=== PATIENT | female | born 1950 | race African-American/Black ===

== ENCOUNTER 2019-08-28 16:14 | Inpatient (IN) | payer MEDICARE ==
[~2019-08-28] VITALS: Ht 160 cm; Wt 64.7 kg
[2019-08-28] MEDS ORDERED: FURO40I IM (16:33)
[2019-08-28 17:28] LABS: BASOPHILS % (AUTO) 0.9 % (0.0-2.0); EOSINOPHILS % (AUTO) 1.2 % (1.0-6.0); HEMATOCRIT 48.8 % (36-46); HEMOGLOBIN 15.9 g/dL (12.0-16.0); LYMPHOCYTES # (AUTO) 1.5 K/uL (1.0-4.8); MEAN CORPUSCULAR HGB CONC 32.6 G/dL (31.0-37.0); MEAN CORPUSCULAR VOLUME 80 fL (80-100); MONOCYTES # (AUTO) 0.4 K/uL (0.1-1.0); NEUTROPHILS # (AUTO) 2.7 K/uL (1.8-7.7); NEUTROPHILS % (AUTO) 56.9 % (40.0-70.0); PLATELET COUNT (AUTO) 135 K/uL (150-450); RED BLOOD CELL COUNT(AUTO) 6.11 MIL/uL (4.00-5.20)
[2019-08-28 17:38] LABS: CALCIUM, TOTAL 8.1 mg/dL (8.8-10.5); CREATININE 3.14 mg/dL (0.60-1.30)
[2019-08-28 17:47] LABS: TROPONIN I 0.13 ng/mL (0.00-0.05)
[2019-08-28 17:52] LABS: ALBUMIN 3.2 g/dL (3.4-5.0); BILIRUBIN,TOTAL 3.6 mg/dL (0.1-1.0); THYROID STIMULATING HORMONE 60.85 uIU/mL (0.36-3.74); TOTAL PROTEIN, SERUM 6.4 g/dL (6.4-8.2)
[2019-08-28] MEDS ORDERED: 0.9% SODIUM CHLORIDE 10 ML SYRINGE IVP PRN (18:30)
[2019-08-28] MEDS ORDERED: ONDANSETRON HCL 4 MG/2 ML VIAL IVP PRN ×2 (18:30→23:15)
[2019-08-28] MEDS ORDERED: ACETAMINOPHEN 325 MG TABLET PO PRN ×2 (18:30→23:15)
[2019-08-28 22:30] VITALS: BP 111/66
[2019-08-28] MEDS ORDERED: INFLUENZA VIRUS VACCINE QVS 2019-20 (3YR+)/PF 60 MCG/0.5 ML SYRINGE IM ONE (22:30)
[2019-08-28] MEDS ORDERED: ZOLPIDEM TARTRATE 5 MG TABLET PO PRN (23:15)
[2019-08-28] MEDS ORDERED: HYDROCODONE/ACETAMINOPHEN 5-325 MG TABLET PO PRN (23:15)
[2019-08-28] MEDS ORDERED: IPRATROPIUM BROMIDE 0.5 MG/2.5 ML NEB SOLUTION NEB PRN (23:15)
[2019-08-28] MEDS ORDERED: BISACODYL 10 MG RECTAL RECTAL SUPPOSITORY PR PRN (23:15)
[2019-08-28] MEDS ORDERED: MAGNESIUM HYDROXIDE SUSPENSION 30 ML UDCUP PO PRN (23:15)
[2019-08-28] MEDS ORDERED: MORPHINE SULFATE 2 MG/ML SYRINGE IVP PRN (23:15)
[2019-08-28] MEDS ORDERED: ALBUTEROL SULFATE 2.5 MG/0.5 ML NEB SOLUTION NEB PRN (23:15)
[2019-08-29] VITALS (7 sets, daily range): BP systolic 104–123; BP diastolic 61–94
[2019-08-29 01:07] LABS: APPEARANCE,URINE CLOUDY (CLEAR); GLUCOSE, URINE (UA) NEGATIVE (NEGATIVE); KETONES,URINE TRACE mg/dL (NEGATIVE); LEUKOCYTE ESTERASE ,URINE SMALL (NEGATIVE); NITRATE,URINE POSITIVE (NEGATIVE); OCCULT BLOOD,URINE NEGATIVE (NEGATIVE); PROTEIN,URINE SEE CONFIRM (NEGATIVE)
[2019-08-29 01:10] LABS: BILIRUBIN,URINE PRELIM. POSITIVE (NEGATIVE)
[2019-08-29 01:12] LABS: AMPHET/METH SCREEN,URINE NEGATIVE (NEGATIVE); BARBITURATE SCREEN, URINE NEGATIVE (NEGATIVE); BENZODIAZEPINES SCREEN,URINE NEGATIVE (NEGATIVE); CANNABINOID SCREEN,URINE NEGATIVE (NEGATIVE); COCAINE SCREEN,URINE NEGATIVE (NEGATIVE); METHADONE SCREEN, URINE NEGATIVE (NEGATIVE); OPIATE SCREEN,URINE NEGATIVE (NEGATIVE); PHENCYCLIDINE SCREEN,URINE NEGATIVE (NEGATIVE)
[2019-08-29 01:18] LABS: BACTERIA,URINE Few /HPF (None Seen)
[2019-08-29 01:19] LABS: SQUAMOUS EPITHELIAL CELL,UR Moderate /LPF (None Seen)
[2019-08-29 01:21] LABS: SULFOSALICYLIC ACID,URINE 1+ (Negative)
[2019-08-29 06:08] LABS: BASOPHILS % (AUTO) 0.9 % (0.0-2.0); EOSINOPHILS % (AUTO) 2.2 % (1.0-6.0); HEMATOCRIT 46.3 % (36-46); HEMOGLOBIN 15.1 g/dL (12.0-16.0); LYMPHOCYTES # (AUTO) 1.4 K/uL (1.0-4.8); LYMPHOCYTES % (AUTO) 29.4 % (22.0-44.0); MEAN CORPUSCULAR HEMOGLOBIN 25.9 pg (26.0-34.0); MEAN CORPUSCULAR HGB CONC 32.6 G/dL (31.0-37.0); MEAN CORPUSCULAR VOLUME 80 fL (80-100); MONOCYTES # (AUTO) 0.6 K/uL (0.1-1.0); MONOCYTES % (AUTO) 13.4 % (2.0-9.0); NEUTROPHILS # (AUTO) 2.6 K/uL (1.8-7.7); NEUTROPHILS % (AUTO) 54.1 % (40.0-70.0); PLATELET COUNT (AUTO) 130 K/uL (150-450); RED BLOOD CELL COUNT(AUTO) 5.83 MIL/uL (4.00-5.20); RED CELL DISTRIBUTION WIDTH 17.4 % (11.5-14.5)
[2019-08-29] MEDS: LEVOTHYROXINE SODIUM 50 MCG TABLET PO SCH ×2 (06:30→06:43)
[2019-08-29 06:42] LABS: ALBUMIN 2.8 g/dL (3.4-5.0); BILIRUBIN,TOTAL 3.2 mg/dL (0.1-1.0); CALCIUM, TOTAL 8.2 mg/dL (8.8-10.5); CREATININE 2.95 mg/dL (0.60-1.30); POTASSIUM 3.6 mmol/L (3.5-5.1); TOTAL PROTEIN, SERUM 5.9 g/dL (6.4-8.2)
[2019-08-29] MEDS: HEPARIN SODIUM,PORCINE 5,000 UNITS/ML VIAL SQ SCH ×4 (08:00→23:19)
[2019-08-29] MEDS ORDERED: BUMETANIDE 0.25 MG/ML 4 ML VIAL IVP SCH (09:00)
[2019-08-29] MEDS: SPIRONOLACTONE 25 MG TABLET PO SCH (15:15)
[2019-08-29] MEDS: BUMETANIDE 0.25 MG/ML 4 ML VIAL IVP SCH ×2 (15:49→21:00)
[2019-08-29] MEDS ORDERED: SODIUM CHLORIDE 0.9% 2,000 ML IV ONE (19:08)
[2019-08-30 00:18] VITALS: BP 95/64
[2019-08-30] MEDS: LEVOTHYROXINE SODIUM 50 MCG TABLET PO SCH (05:31)
[2019-08-30 06:11] VITALS: BP 114/71
[2019-08-30 06:47] LABS: BASOPHILS % (AUTO) 0.4 % (0.0-2.0); EOSINOPHILS % (AUTO) 1.9 % (1.0-6.0); HEMATOCRIT 45.2 % (36-46); HEMOGLOBIN 14.7 g/dL (12.0-16.0); LYMPHOCYTES # (AUTO) 1.8 K/uL (1.0-4.8); LYMPHOCYTES % (AUTO) 37.1 % (22.0-44.0); MEAN CORPUSCULAR HEMOGLOBIN 26.1 pg (26.0-34.0); MEAN CORPUSCULAR HGB CONC 32.6 G/dL (31.0-37.0); MEAN CORPUSCULAR VOLUME 80 fL (80-100); MONOCYTES # (AUTO) 0.6 K/uL (0.1-1.0); MONOCYTES % (AUTO) 11.8 % (2.0-9.0); NEUTROPHILS # (AUTO) 2.3 K/uL (1.8-7.7); NEUTROPHILS % (AUTO) 48.8 % (40.0-70.0); PLATELET COUNT (AUTO) 125 K/uL (150-450); RED BLOOD CELL COUNT(AUTO) 5.64 MIL/uL (4.00-5.20); RED CELL DISTRIBUTION WIDTH 17.7 % (11.5-14.5)
[2019-08-30 07:02] VITALS: BP 112/66
[2019-08-30 07:07] LABS: ALBUMIN 3.1 g/dL (3.4-5.0); BILIRUBIN,TOTAL 3.5 mg/dL (0.1-1.0); CALCIUM, TOTAL 8.2 mg/dL (8.8-10.5); CREATININE 2.77 mg/dL (0.60-1.30); POTASSIUM 3.6 mmol/L (3.5-5.1); TOTAL PROTEIN, SERUM 6.3 g/dL (6.4-8.2)
[2019-08-30] MEDS: HEPARIN SODIUM,PORCINE 5,000 UNITS/ML VIAL SQ SCH ×3 (08:00→23:09)
[2019-08-30] MEDS: SPIRONOLACTONE 25 MG TABLET PO SCH ×2 (09:00→11:23)
[2019-08-30] MEDS: BUMETANIDE 0.25 MG/ML 4 ML VIAL IVP SCH ×4 (09:00→20:51)
[2019-08-30] MEDS: METOPROLOL SUCCINATE 25 MG ER TABLET PO SCH ×3 (11:23→21:00)
[2019-08-30 11:53] VITALS: BP 126/74
[2019-08-30 13:44] LABS: CREATININE,URINE RANDOM 76.3 mg/dL (30.0-125.0)
[2019-08-30 15:40] VITALS: BP 114/69
[2019-08-30 19:57] VITALS: BP 116/62
[2019-08-31 04:31] VITALS: BP 115/59
[2019-08-31] MEDS: LEVOTHYROXINE SODIUM 50 MCG TABLET PO SCH (06:07)
[2019-08-31] MEDS: HEPARIN SODIUM,PORCINE 5,000 UNITS/ML VIAL SQ SCH ×3 (08:00→23:51)
[2019-08-31] MEDS: METOPROLOL SUCCINATE 25 MG ER TABLET PO SCH ×2 (09:00→20:33)
[2019-08-31] MEDS: BUMETANIDE 0.25 MG/ML 4 ML VIAL IVP SCH ×3 (09:12→21:16)
[2019-08-31] MEDS: SPIRONOLACTONE 25 MG TABLET PO SCH (09:12)
[2019-08-31 11:05] LABS: HIV 1-2 SCREEN 4TH GEN W/RFLX Non Reactive (Non Reactive)
[2019-08-31 12:01] VITALS: BP 118/62
[2019-08-31] MEDS: ASPIRIN 81 MG CHEWABLE TABLET PO SCH (12:15)
[2019-08-31] MEDS: ATORVASTATIN CALCIUM 10 MG TABLET PO SCH (12:15)
[2019-08-31 15:46] VITALS: BP 114/71
[2019-08-31 20:04] VITALS: BP 145/63
[2019-08-31 23:20] VITALS: BP 139/67
[2019-09-01 05:23] VITALS: BP 117/82
[2019-09-01] MEDS: LEVOTHYROXINE SODIUM 50 MCG TABLET PO SCH (05:50)
[2019-09-01] MEDS: HEPARIN SODIUM,PORCINE 5,000 UNITS/ML VIAL SQ SCH ×3 (08:00→23:29)
[2019-09-01] MEDS: SPIRONOLACTONE 25 MG TABLET PO SCH (08:21)
[2019-09-01] MEDS: BUMETANIDE 0.25 MG/ML 4 ML VIAL IVP SCH ×3 (08:21→21:00)
[2019-09-01] MEDS: ATORVASTATIN CALCIUM 10 MG TABLET PO SCH (08:30)
[2019-09-01] MEDS: ASPIRIN 81 MG CHEWABLE TABLET PO SCH (08:30)
[2019-09-01] MEDS: METOPROLOL SUCCINATE 25 MG ER TABLET PO SCH ×2 (08:31→21:00)
[2019-09-01] MEDS: LEVOTHYROXINE SODIUM 100 MCG VIAL IVP SCH (12:37)
[2019-09-01 12:52] LABS: CALCIUM, TOTAL 8.7 mg/dL (8.8-10.5); CREATININE 1.97 mg/dL (0.60-1.30); POTASSIUM 3.2 mmol/L (3.5-5.1)
[2019-09-01] MEDS ORDERED: POTASSIUM CHLORIDE 20 MEQ ER TABLET PO ONE ×2 (14:45→17:45)
[2019-09-01 20:36] VITALS: BP 134/89
[2019-09-02 06:24] VITALS: BP 93/63
[2019-09-02] MEDS: HEPARIN SODIUM,PORCINE 5,000 UNITS/ML VIAL SQ SCH ×2 (07:54→16:00)
[2019-09-02] MEDS: ASPIRIN 81 MG CHEWABLE TABLET PO SCH (07:54)
[2019-09-02] MEDS: LEVOTHYROXINE SODIUM 100 MCG VIAL IVP SCH (07:54)
[2019-09-02] MEDS: SPIRONOLACTONE 25 MG TABLET PO SCH (07:54)
[2019-09-02] MEDS: METOPROLOL SUCCINATE 25 MG ER TABLET PO SCH ×2 (07:55→21:00)
[2019-09-02] MEDS: ATORVASTATIN CALCIUM 10 MG TABLET PO SCH (07:55)
[2019-09-02] MEDS: BUMETANIDE 0.25 MG/ML 10 ML VIAL IV SCH ×2 (08:32→21:00)
[2019-09-02 10:46] VITALS: BP 111/70
[2019-09-02 13:35] LABS: BASOPHILS % (AUTO) 0.5 % (0.0-2.0); EOSINOPHILS % (AUTO) 2.2 % (1.0-6.0); HEMATOCRIT 49.9 % (36-46); HEMOGLOBIN 16.1 g/dL (12.0-16.0); LYMPHOCYTES # (AUTO) 0.8 K/uL (1.0-4.8); LYMPHOCYTES % (AUTO) 13.6 % (22.0-44.0); MEAN CORPUSCULAR HEMOGLOBIN 25.5 pg (26.0-34.0); MEAN CORPUSCULAR HGB CONC 32.2 G/dL (31.0-37.0); MEAN CORPUSCULAR VOLUME 79 fL (80-100); MONOCYTES % (AUTO) 16.3 % (2.0-9.0); NEUTROPHILS # (AUTO) 4.1 K/uL (1.8-7.7); NEUTROPHILS % (AUTO) 67.4 % (40.0-70.0); PLATELET COUNT (AUTO) 140 K/uL (150-450); RED BLOOD CELL COUNT(AUTO) 6.29 MIL/uL (4.00-5.20); RED CELL DISTRIBUTION WIDTH 17.2 % (11.5-14.5)
[2019-09-02 13:43] LABS: ALBUMIN 2.7 g/dL (3.4-5.0); BILIRUBIN,TOTAL 2.7 mg/dL (0.1-1.0); CALCIUM, TOTAL 8.3 mg/dL (8.8-10.5); CREATININE 1.53 mg/dL (0.60-1.30); POTASSIUM 4.5 mmol/L (3.5-5.1); TOTAL PROTEIN, SERUM 6.2 g/dL (6.4-8.2)
[2019-09-02] MEDS ORDERED: LEVOFLOXACIN 750 MG/D5% WATER 150 ML IV SCH (14:00)
[2019-09-02 14:27] VITALS: BP 122/72
[2019-09-02 19:37] VITALS: BP 101/72
[2019-09-02 23:13] VITALS: BP 122/75
[2019-09-03 05:04] VITALS: BP_SYST 104; BP_SYST 105; BP_DIAS 57; BP_DIAS 62
[2019-09-03] MEDS: LEVOTHYROXINE SODIUM 100 MCG VIAL IVP SCH (05:36)
[2019-09-03 07:31] VITALS: BP 101/65
[2019-09-03] MEDS: HEPARIN SODIUM,PORCINE 5,000 UNITS/ML VIAL SQ SCH ×3 (08:00→15:08)
[2019-09-03] MEDS: ASPIRIN 81 MG CHEWABLE TABLET PO SCH (08:10)
[2019-09-03] MEDS: SPIRONOLACTONE 25 MG TABLET PO SCH (08:10)
[2019-09-03] MEDS: ATORVASTATIN CALCIUM 10 MG TABLET PO SCH (08:11)
[2019-09-03] MEDS: METOPROLOL SUCCINATE 25 MG ER TABLET PO SCH ×2 (08:11→21:00)
[2019-09-03] MEDS ORDERED: AcetaZOLAMIDE 250 MG TABLET PO ONE (09:30)
[2019-09-03 11:08] VITALS: BP 111/69
[2019-09-03 16:15] VITALS: BP 98/63
[2019-09-03 20:02] VITALS: BP 127/69
[2019-09-04 00:16] VITALS: BP 121/65
[2019-09-04 04:38] VITALS: BP 112/52
[2019-09-04] MEDS: LEVOTHYROXINE SODIUM 100 MCG VIAL IVP SCH (06:07)
[2019-09-04 07:00] VITALS: BP 122/60
[2019-09-04] MEDS: HEPARIN SODIUM,PORCINE 5,000 UNITS/ML VIAL SQ SCH ×3 (08:00→15:03)
[2019-09-04 09:00] VITALS: BP 122/60
[2019-09-04] MEDS: METOPROLOL SUCCINATE 25 MG ER TABLET PO SCH ×2 (09:00→21:00)
[2019-09-04] MEDS: ATORVASTATIN CALCIUM 10 MG TABLET PO SCH (09:00)
[2019-09-04] MEDS: ASPIRIN 81 MG CHEWABLE TABLET PO SCH (09:00)
[2019-09-04 12:00] VITALS: BP 116/54
[2019-09-04 13:08] LABS: ALBUMIN URINE (ELP) 59.1 %
[2019-09-04] MEDS ORDERED: BUME1TAB34 PO (16:19)
[2019-09-04] MEDS ORDERED: LEVO25TA9 PO (16:20)
[2019-09-04] MEDS ORDERED: ATOR10TA84 PO (16:21)
[2019-09-04] MEDS ORDERED: ASPI81 PO (16:21)
[2019-09-04] MEDS ORDERED: METO25XL PO (16:23)
[2019-09-04 20:16] VITALS: BP 129/67
[2019-09-04] MEDS: BUMETANIDE 0.25 MG/ML 4 ML VIAL IVP SCH (21:00)
[2019-09-05 04:33] VITALS: BP 124/65
[2019-09-05] MEDS: LEVOTHYROXINE SODIUM 100 MCG VIAL IVP SCH (05:52)
[2019-09-05 07:36] VITALS: BP 121/86
[2019-09-05] MEDS: HEPARIN SODIUM,PORCINE 5,000 UNITS/ML VIAL SQ SCH ×2 (08:00)
[2019-09-05] MEDS: BUMETANIDE 0.25 MG/ML 4 ML VIAL IVP SCH (09:00)
[2019-09-05] MEDS: ATORVASTATIN CALCIUM 10 MG TABLET PO SCH (09:00)
[2019-09-05] MEDS: METOPROLOL SUCCINATE 25 MG ER TABLET PO SCH (09:00)
[2019-09-05] MEDS: ASPIRIN 81 MG CHEWABLE TABLET PO SCH (09:00)
== END 2019-09-05 11:15 | disposition home or self-care (01) | DRG 70 ==
LOC: EMS 16:16 → 5N 18:48
PROVIDERS: ADMIT Hospitalist; ATTEND Hospitalist
DX: G93.40 Encephalopathy, unspecified (principal); I50.41 Acute combined systolic (congestive) and diastolic (congestive) heart failure; N17.9 Acute kidney failure, unspecified; I42.0 Dilated cardiomyopathy; N18.5 Chronic kidney disease, stage 5; E03.9 Hypothyroidism, unspecified; D69.6 Thrombocytopenia, unspecified; R60.1 Generalized edema; F03.90 Unspecified dementia, unspecified severity, without behavioral disturbance, psychotic disturbance, mood disturbance, and anxiety; F60.0 Paranoid personality disorder; R09.02 Hypoxemia; Z59.0 Homelessness; Z91.14 Patient's other noncompliance with medication regimen; Z28.21 Immunization not carried out because of patient refusal
CPT/HCPCS: 74176; 80074; 82570; 83935; 84156; 84166; 84300; 84443; 86038; 86160; 87086; 87389; 93005; 93306; 97163; 97166; 97530; J1644; J1956; J3490; J7030

== ENCOUNTER 2020-03-18 09:57 | Emergency (ER) | payer MEDICARE ==
[~2020-03-18] VITALS: Ht 162.6 cm; Wt 67.7 kg
[~2020-03-18 09:57] MED LIST: ASPI-728 PO; ATOR10TA84 PO; BUME1TAB34 PO; LEVO25TA9 PO; METO25XL PO
[2020-03-18 11:37] LABS: BASOPHILS % (AUTO) 0.4 % (0.0-2.0); HEMOGLOBIN 12.9 g/dL (12.0-16.0); LYMPHOCYTES % (AUTO) 31.7 % (22.0-44.0); MEAN CORPUSCULAR HEMOGLOBIN 25.9 pg (26.0-34.0); MEAN CORPUSCULAR HGB CONC 31.4 G/dL (31.0-37.0); MEAN CORPUSCULAR VOLUME 82 fL (80-100); MONOCYTES # (AUTO) 0.3 K/uL (0.1-1.0); MONOCYTES % (AUTO) 9.5 % (2.0-9.0); NEUTROPHILS # (AUTO) 1.9 K/uL (1.8-7.7); NEUTROPHILS % (AUTO) 57.4 % (40.0-70.0); PLATELET COUNT (AUTO) 175 K/uL (150-450); RED BLOOD CELL COUNT(AUTO) 4.99 MIL/uL (4.00-5.20); RED CELL DISTRIBUTION WIDTH 15.3 % (11.5-14.5)
[2020-03-18 11:56] LABS: INR 1.2 (0.9-1.1)
[2020-03-18 11:57] LABS: CREATININE 1.2 mg/dL (0.60-1.30); POTASSIUM 3.1 mmol/L (3.5-5.1)
[2020-03-18 12:02] VITALS: BP 141/116
[2020-03-18 12:04] LABS: ALBUMIN 3.3 g/dL (3.4-5.0); BILIRUBIN,TOTAL 1.4 mg/dL (0.1-1.0); TOTAL PROTEIN, SERUM 7.9 g/dL (6.4-8.2)
[2020-03-18 12:09] LABS: CALCIUM, TOTAL 8.6 mg/dL (8.8-10.5)
== END 2020-03-18 12:55 | disposition left against medical advice (07) ==
LOC: EMS 10:03
DX: R10.84 Generalized abdominal pain (principal); R06.02 Shortness of breath; R19.7 Diarrhea, unspecified; R11.10 Vomiting, unspecified; I50.9 Heart failure, unspecified; K21.9 Gastro-esophageal reflux disease without esophagitis
CPT/HCPCS: 93005